=== PATIENT | female | born 1980 | race Caucasian/White ===

== ENCOUNTER 2021-04-11 14:12 | Inpatient (IN) ==
[2021-04-11] MEDS ORDERED: OXYTOCIN 30 UNITS/500 ML BAG IV PRN ×2 (17:07→20:36)
[2021-04-11] MEDS: LACTATED RINGER'S 1,000 ML IV PRN ×2 (17:37→18:37)
[2021-04-11 17:50] LABS: Hematocrit (blood only) 34.9 % (37-47); Hemoglobin 11.2 g/dL (12.0-16.0); Mean Corpuscular Hemoglobin 28.1 pg (25-34); Mean Corpuscular Hgb Conc 32.1 g/dL (32-36); Mean Corpuscular Volume 87.5 fL (80-100); Mean Platelet Volume 9.8 fL (7.4-10.4); Platelet Count 231 K/uL (130-400); RDW Coefficient of Variation 14.9 % (11.5-14.5); RDW Standard Deviation 47.7 fL (36.4-46.3); Red Blood Count 3.99 M/uL (4.2-5.4); White Blood Count 6.48 K/uL (4.8-10.8)
[2021-04-11] MEDS ORDERED: BUPIVACAINE 0.25% 30 ML VIAL ONE (17:50)
[2021-04-11] MEDS ORDERED: SODIUM CHLORIDE 0.9% INJ 10 ML VIAL ONE (17:50)
[2021-04-11] MEDS ORDERED: ePHEDrine sulfate 50 MG/ML AMP ONE (17:50)
[2021-04-11] MEDS ORDERED: fentaNYL 2MCG/ML ROPIVACAINE 1.25MG/ML 100 ML BAG EPI ONE (17:51)
[2021-04-11] MEDS ORDERED: fentaNYL citrate 100 MCG/2 ML VIAL ONE (17:51)
[2021-04-11] MEDS ORDERED: NALOXONE HCL 1 MG in SODIUM CHLORIDE 0.9% 1000ML 1,000 ML IV PRN (18:26)
[2021-04-11] MEDS ORDERED: ePHEDrine sulfate 50 MG/ML AMP IV PRN (18:26)
[2021-04-11] MEDS ORDERED: diphenhydrAMINE 50 MG/ML VIAL IV PRN (18:26)
[2021-04-11] MEDS ORDERED: ONDANSETRON INJ 2 MG/ML 2 ML VIAL IV PRN (18:26)
[2021-04-11] MEDS ORDERED: NALBUPHINE HCL INJ 10 MG/ML AMP IV PRN (18:26)
[2021-04-11] MEDS ORDERED: NALOXONE HCL 0.4 MG/1 ML VIAL/CARP IV PRN (18:26)
[2021-04-11] MEDS ORDERED: fentaNYL 2MCG/ML ROPIVACAINE 1.25MG/ML 100 ML BAG EPI PRN (18:26)
--- NOTE | 2021-04-11 18:27 | Anesthesiology Consultation ---
Date of Service April 11, 2021 Assessment & Plan (1) Encounter for pre-operative examination: Chart Review Chart Review: Patient NOT seen in Pre Admission Testing and Acceptable Risk for Labor Epidural Consults Requested none History Height/Weight Height: 5 ft 6 in Weight: 71.668 kg Allergies Allergy/AdvReac Type Severity Reaction Status Date / Time No Known Allergies Allergy Verified 04/11/21 14:31 Medications Home Medications Medication Instructions Recorded Confirmed Last Taken prenat.vits,grady,eiw-ybik-sndlw 1 tab PO DAILY 08/22/20 04/11/21 04/11/21 07:00 acetone (urine) test (Ketone Urine #50 ea 02/19/21 04/09/21 Unknown Test) blood sugar diagnostic (OneTouch #150 ea 02/19/21 04/09/21 Unknown Verio test strips) blood-glucose meter (OneTouch #1 ea 02/19/21 04/09/21 Unknown Verio Reflect Meter) lancets 33 gauge (OneTouch Delica #150 ea 02/19/21 04/09/21 Unknown Lancets) Active Medications Generic Name Dose Route Start Last Admin Trade Name Freq PRN Reason Stop Dose Admin Lactated Ringer's 1,000 mls @ 125 mls/hr 04/11/21 17:07 04/11/21 18:37 Lr IV 04/13/21 17:06 125 mls/hr .Q8H PRN Administration L&D Protocol Protocol Past Medical History Medical History (Updated 04/11/21 @ 18:27 by Salty Matos MD) Encounter for pre-operative examination 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, per GI no treatment in Exercise / Class Metabolic Activity II 4-5 Yardwork/Stairs/Walk up hill Past Family History Family History Grandfather Cancer lymphoma Other Hepatitis B carrier Denies family history of Ovarian cancer Prostate cancer Heart disease Kidney disease Breast cancer Colorectal cancer Past Surgical History Surgical History 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
--- NOTE | 2021-04-11 20:28 | Delivery Summary ---
Vaginal Delivery Summary Date of Service April 11, 2021 Vaginal Delivery Summary Spontaneous vaginal delivery the patient arrived in active labor initially she was 1 cm then progressed to 5 she requested an epidural and received this. Once this was done artificial rupture of membranes was for clear fluid she then progressed to fully dilated and pushed over several contractions delivering a baby in occiput anterior position gentle traction no excessive force live vigorous female infant cord clamped and cut cord blood obtained placenta removed with gentle traction IV Pitocin started second-degree tear repaired with 3-0 Vicryl sponge and instrument counts were correct estimated blood loss 400 mL pediatrics aware of hepatitis status of the baby
[2021-04-11] MEDS ORDERED: oxyCODONE/ACETAMINOPHEN 5mg/325mg TAB PO PRN (20:36)
[2021-04-11] MEDS ORDERED: IBUPROFEN 600 MG TAB PO PRN (20:36)
[2021-04-11] MEDS ORDERED: SUPERCREAM 0.870% 15 GM JAR EXT PRN (20:36)
[2021-04-11] MEDS ORDERED: DIPHTHERIA/TETANUS/PERTUSSIS 0.5 ML SYR/VIAL IM ONE (20:36)
[2021-04-11] MEDS ORDERED: BENZOCAINE 20% AER SPR 82.5 GM CAN EXT PRN (20:36)
[2021-04-11] MEDS ORDERED: HYDROCORTISONE ACETATE 25 MG SUPP PR PRN (20:36)
[2021-04-11] MEDS ORDERED: ACETAMINOPHEN 325 MG TAB PO PRN (20:36)
--- NOTE | 2021-04-11 21:40 | Anesthesia Procedure Note ---
Date of Service April 11, 2021 Anesthesia Post Epidural Note Vital Signs Vital Signs: Temp Pulse Resp BP Pulse Ox 36.6 C 94 H 20 127/79 99 04/11/21 19:00 04/11/21 21:25 04/11/21 21:10 04/11/21 21:25 04/11/21 20:26 Notes Mental Status: alert / awake / arousable and participated in evaluation Patient Amnestic to Procedure: No Nausea / Vomiting: adequately controlled Pain: adequately controlled Airway Patency, RR, SpO2: stable & adequate BP & HR: stable & adequate Hydration State: stable & adequate Neuraxial Anesthesia: was administered and sensory block is resolving Anesthetic Complications: no major complications apparent and Pt Satisfied with anesthetic care Epidural: Removed without complications and With tip intact
[2021-04-11] MEDS ORDERED: AMMONIA, AROMATIC INHAL 1 EA AMP INH ONE (22:09)
--- NOTE | 2021-04-12 07:56 | Obstetrical Progress Note ---
Date of Service April 12, 2021 Assessment & Plan (1) state: day #1 she just delivered 12 hours ago she is doing well ambulating well bleeding is minimal no extremity pain Subjective Ambulation: ambulating normally Voiding: no voiding problems Passing Gas:: Yes Diet Tolerance:: regular diet Lochia:: Small Feeding Type:: breast feeding Results & Data ([facility]) Vital Signs (Past 12 Hours) Vital Signs Temp Pulse Pulse Resp BP BP Pulse Ox 04/12/21 03:45 98.2 F 60 18 117/68 98 04/11/21 23:30 98.1 F 61 18 119/74 99 04/11/21 22:11 75 132/70 04/11/21 22:10 97.9 F 18 04/11/21 21:55 94 H 122/79 04/11/21 21:40 72 18 121/78 04/11/21 21:25 94 H 127/79 04/11/21 21:16 84 124/74 04/11/21 21:10 20 04/11/21 20:56 100 H 132/70 04/11/21 20:55 18 04/11/21 20:40 100 H 18 122/70 04/11/21 20:26 90 99 04/11/21 20:25 88 18 112/73 04/11/21 20:22 96 H 110/72 04/11/21 20:21 104 H 97 04/11/21 20:16 98 H 98 04/11/21 20:11 85 98 04/11/21 20:08 98 H 113/79 04/11/21 20:06 86 98 04/11/21 20:01 87 97 04/11/21 19:56 90 98
[2021-04-12] MEDS: DOCUSATE SODIUM 100 MG CAP PO SCH ×2 (08:45→20:22)
[2021-04-12] MEDS: PRENATAL VITAMIN 1 TAB PO SCH (08:46)
[2021-04-12] MEDS ORDERED: NON-FORMULARY MEDICATION (Prenat.Vits,Cal,Min-Iron-Folic 1 TAB) PO SCH (09:00)
[2021-04-12] MEDS ORDERED: bisacodyL 5 MG TABEC PO SCH (20:00)
--- NOTE | 2021-04-13 06:45 | Obstetrical Progress Note ---
Date of Service April 13, 2021 Assessment & Plan (1) state: PPD # 2. No ext pain, doing well, home Subjective Ambulation: ambulating normally Voiding: no voiding problems Passing Gas:: Yes Diet Tolerance:: regular diet Lochia:: Small Results & Data ([facility]) Vital Signs (Past 12 Hours) Vital Signs Temp Pulse Resp BP Pulse Ox 04/12/21 23:15 98.6 F 80 18 101/68 04/12/21 19:15 98.6 F 80 16 115/73 96
[2021-04-13] MEDS: DOCUSATE SODIUM 100 MG CAP PO SCH (07:33)
[2021-04-13] MEDS: PRENATAL VITAMIN 1 TAB PO SCH (07:33)
[2021-04-13 07:50] LABS: Hematocrit (blood only) 29.7 % (37-47); Hemoglobin 9.7 g/dL (12.0-16.0)
[2021-04-13] MEDS ORDERED: bisacodyL 10 MG SUPP PR PRN (20:36)
== END 2021-04-13 13:00 | disposition home or self-care (01) | DRG 807 ==
LOC: OPB 14:12 → 4S1 14:21 → 4S2 22:30